=== PATIENT | male | born 1995 | race African-American/Black ===

== ENCOUNTER 2021-07-27 17:09 | Emergency (ER) | payer MEDICAID ==
[~2021-07-27] VITALS: Ht 170.2 cm; Wt 90.7 kg
--- NOTE | 2021-07-27 17:30 | NUR ---
PT SELF PRESENTS TO ED C/O AUDITORY HALLUCINATION AND SUICIDAL IDEATION W/ PLAN TO RUN INTO TRAFFIC. DENIES HI. 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 PT IS REEQUESTING VOLUNTARY PSYCH ADMISSSION TO A PSYCHIATRIC FACILITY. AAOX4. STABLE VITALS. AWAITNG MD HITCHCOCK.
--- NOTE | 2021-07-27 17:31 | NUR ---
[facility] KEYS AT BEDSIDE FOR EVAL.
[2021-07-27 18:11] LABS: BASOPHILS % (AUTO) 0.4 % (0.0-2.0); EOSINOPHILS % (AUTO) 0.6 % (0.0-6.0); HEMATOCRIT 43 % (39-51); HEMOGLOBIN 14.6 g/dL (13.5-17.5); LYMPHOCYTES # (AUTO) 2.4 K/uL (0.8-4.8); LYMPHOCYTES % (AUTO) 39.3 % (20.0-44.0); MEAN CORPUSCULAR HGB CONC 34 g/dl (31.0-36.0); MEAN CORPUSCULAR VOLUME 92 fL (80-96); MONOCYTES # (AUTO) 0.4 K/uL (0.1-1.30); MONOCYTES % (AUTO) 6.6 % (2.0-12.0); NEUTROPHILS # (AUTO) 3.3 K/uL (1.8-8.9); NEUTROPHILS % (AUTO) 53.1 % (43.0-81.0); PLATELET COUNT (AUTO) 273 K/uL (150-450); WHITE BLOOD COUNT (AUTO) 6.2 K/uL (4.3-11.0)
[2021-07-27 18:28] LABS: BILIRUBIN,URINE NEGATIVE (NEGATIVE); COLOR,URINE YELLOW (YELLOW); LEUKOCYTE ESTERASE ,URINE NEGATIVE (NEGATIVE); NITRITE, URINE NEGATIVE (NEGATIVE); PROTEIN,URINE NEGATIVE (NEGATIVE); UGLUCOSE NEGATIVE (NEGATIVE); UROBILINOGEN,URINE 0.2 EU/dL (0.2)
[2021-07-27 18:39] LABS: ALANINE AMINOTRANSFERASE 106 U/L (12-78); ALBUMIN 3.9 g/dL (3.4-5.0); ALCOHOL, BLOOD 5 mg/dL (0-0); ALKALINE PHOSPHATASE 84 U/L (46-116); ASPARTATE AMINOTRANSFERASE 47 U/L (15-37); BILIRUBIN,DIRECT 0.2 mg/dL (0.0-0.2); BILIRUBIN,TOTAL 0.9 mg/dL (0.2-1.0); CALCIUM, SERUM 8.9 mg/dL (8.5-10.1); CARBON DIOXIDE 23 mmol/L (21-32); CHLORIDE 104 mmol/L (98-107); CREATININE 1.1 mg/dL (0.6-1.3); GLUCOSE 120 mg/dL (74-106); POTASSIUM 3.9 mmol/L (3.5-5.1); SODIUM SERUM 139 mmol/L (136-145); TOTAL PROTEIN, SERUM 7.7 g/dL (6.4-8.2); UREA NITROGEN, BLOOD 9 mg/dL (7-18)
[2021-07-27 18:43] LABS: ACETAMINOPHEN < 10 ug/ml (10-30)
--- NOTE | 2021-07-27 20:00 | NUR ---
PATIENT A/O X 4, RR EVEN AND UNLABORED, NO SOB NOTED. PATIENT VSS. NO ACUTE DISTRESS NOTED. WILL CONTINUE TO MONITOR.
--- NOTE | 2021-07-28 00:10 | NUR ---
Pt accepted at [facility] by Dr. Sanchez. # for report [phone] after 0200
--- NOTE | 2021-07-28 02:17 | NUR ---
[facility] CALLED FOR TRANSPORTATION. ETA 75-90 MINUTES.
--- NOTE | 2021-07-28 03:09 | NUR ---
REPORT GIVEN TO [facility]
--- NOTE | 2021-07-28 03:17 | NUR ---
[facility] PICKED UP PT FOR TRANSPORT TO [place]. VSS.
[2021-07-28 03:21] VITALS: BP 129/81
== END 2021-07-28 03:27 ==
LOC: ER 17:09
DX: R45.851 Suicidal ideations (principal); F20.9 Schizophrenia, unspecified; Z20.822 Contact with and (suspected) exposure to COVID-19
CPT/HCPCS: 36415; 80048; 80076; 80143; 80307; 80320; 81003; 85025; 87426; 99285; C9803; G0480

== ENCOUNTER 2023-04-27 11:02 | Emergency (ER) | payer MEDICAID, OTHER ==
[~2023-04-27] VITALS: Ht 182.9 cm; Wt 127.0 kg
--- NOTE | 2023-04-27 11:39 | NUR ---
"Hearing voices x3d Tells me to hurt myself ". PLACED IN ROOM18, WANDED, GOWNED, WILL CONTINUE TO OBSERVE AND MONITOR.
[2023-04-27 12:16] LABS: BASOPHILS % (AUTO) 0.7 % (0.0-2.0); EOSINOPHILS % (AUTO) 0.4 % (0.0-6.0); HEMATOCRIT 44 % (39-51); HEMOGLOBIN 14.2 g/dL (13.5-17.5); LYMPHOCYTES # (AUTO) 1.9 K/uL (0.8-4.8); MEAN CORPUSCULAR HGB CONC 32 g/dl (31.0-36.0); MEAN CORPUSCULAR VOLUME 93 fL (80-96); MONOCYTES # (AUTO) 0.6 K/uL (0.1-1.30); NEUTROPHILS # (AUTO) 2.7 K/uL (1.8-8.9); NEUTROPHILS % (AUTO) 51.9 % (43.0-81.0); PLATELET COUNT (AUTO) 217 K/uL (150-450); RED BLOOD CELL COUNT(AUTO) 4.68 MIL/uL (4.5-6.0); WHITE BLOOD COUNT (AUTO) 5.2 K/uL (4.3-11.0)
[2023-04-27 12:28] LABS: BILIRUBIN,URINE NEGATIVE (NEGATIVE); COLOR,URINE YELLOW (YELLOW); LEUKOCYTE ESTERASE ,URINE NEGATIVE (NEGATIVE); NITRITE, URINE NEGATIVE (NEGATIVE); PROTEIN,URINE NEGATIVE (NEGATIVE); UGLUCOSE NEGATIVE (NEGATIVE); UROBILINOGEN,URINE 0.2 EU/dL (0.2)
[2023-04-27 12:59] LABS: CALCIUM, SERUM 8.9 mg/dL (8.5-10.1); CARBON DIOXIDE 26 mmol/L (21-32); CHLORIDE 104 mmol/L (98-107); GLUCOSE 102 mg/dL (74-106); POTASSIUM 4.3 mmol/L (3.5-5.1); SODIUM SERUM 136 mmol/L (136-145); UREA NITROGEN, BLOOD 8 mg/dL (7-18)
--- NOTE | 2023-04-27 13:00 | NUR ---
Lunch Provided - Tolerated well. Swabbed for covid
[2023-04-27 13:06] LABS: ALANINE AMINOTRANSFERASE 180 U/L (12-78); ALBUMIN 3.5 g/dL (3.4-5.0); ALKALINE PHOSPHATASE 76 U/L (46-116); ASPARTATE AMINOTRANSFERASE 91 U/L (15-37); BILIRUBIN,DIRECT 0.2 mg/dL (0.0-0.2); BILIRUBIN,TOTAL 0.7 mg/dL (0.2-1.0); TOTAL PROTEIN, SERUM 7.2 g/dL (6.4-8.2)
[2023-04-27 13:07] LABS: ALCOHOL, BLOOD < 3 mg/dL (0-10)
--- NOTE | 2023-04-27 14:00 | NUR ---
FAXED CLINICALS TO [facility].
--- NOTE | 2023-04-27 15:30 | NUR ---
Report To JORGE Johnson No obvious distress. Stable to transfer
[2023-04-27 15:31] VITALS: BP 150/90
== END 2023-04-27 15:32 ==
LOC: ER 11:05
DX: R45.851 Suicidal ideations (principal); R44.0 Auditory hallucinations; Z20.822 Contact with and (suspected) exposure to COVID-19
CPT/HCPCS: 99285; 85025; 80048; 80076; 81003; 36415; 87426; 80143; 80320; 80307; C9803; G0480